=== PATIENT | male | born 1980 | race Hispanic/Latino ===

== ENCOUNTER 2018-01-22 00:59 | Emergency (ER) | payer SELFPAY ==
[2018-01-22 01:31] LABS: Bilirubin Negative (Negative); Blood, Urine Negative (Negative); Clarity CLEAR (Clear); Glucose, Urine (Dipstick) Negative (Negative); Leukocyte Negative (Negative); Nitrite Negative (Negative); Protein, Urine (Dipstick) Negative (Neg-Trace); Specific Gravity, Urine 1.003 (1.002-1.036); Urobilinogen 0.2 mg/dL (0.2-1.0)
[2018-01-22] MEDS ORDERED: Azithromycin 250 MG TAB ONE (03:46)
[2018-01-22] MEDS ORDERED: Lidocaine 1% PF 5 ML VIAL ONE (03:46)
[2018-01-22] MEDS ORDERED: cefTRIAXone\\ROCEPHIN 250 MG VIAL ONE (03:46)
[2018-01-22 20:55] LABS: Chlamydia by PCR Not Detected (NotDetected); GC by PCR Not Detected (NotDetected)
== END 2018-01-22 05:03 | disposition home or self-care (01) ==
LOC: ERS 00:59
DX: N41.9 Inflammatory disease of prostate, unspecified (principal); F17.210 Nicotine dependence, cigarettes, uncomplicated
CPT/HCPCS: 36416; 81003; 87491; 87591; 96372; J0696; J2001